=== PATIENT | female | born 1970 | race Hispanic/Latino ===

== ENCOUNTER 2020-02-21 10:21 | Emergency (ER) | payer BC ==
[2020-02-21] MEDS ORDERED: KETOROLAC TROMETHAMINE 30 MG/ML VIAL IV NR (11:01)
[2020-02-21] MEDS ORDERED: SODIUM CHLORIDE 0.9% 1000ML 1,000 ML IV STA (11:01)
[2020-02-21] MEDS ORDERED: PANTOPRAZOLE 40 MG 10ML VIAL IV NR (11:01)
[2020-02-21] MEDS ORDERED: ONDANSETRON HCL INJ 2MG/ML 2ML 2 MG/ML VIAL IV NR (11:01)
[2020-02-21] MEDS ORDERED: DIATRIZOATE MEGL/DIATRIZOA SOD 30 ML BTL PO ONE (11:16)
[2020-02-21 11:52] LABS: BASOPHILS % 0.3 % (0.0-1.0); EOSINOPHILS # (AUTO) 0.2 (0.0-0.4); EOSINOPHILS % 1.3 % (0.0-6.0); HEMATOCRIT 41.1 % (34.2-44.1); HEMOGLOBIN 12.7 g/dL (12.0-16.0); LYMPHOCYTES # (AUTO) 3.3 (1.0-3.2); LYMPHOCYTES % 27.9 % (18.0-39.1); MEAN CORPUSCULAR HEMOGLOBIN 26.1 pg (28-32); MEAN CORPUSCULAR HGB CONC 30.9 g/dL (31-35); MEAN CORPUSCULAR VOLUME 84.6 fL (81-99); MONOCYTES # (AUTO) 0.5 (0.2-0.8); MONOCYTES % 4.3 % (4.4-11.3); NEUTROPHILS # (AUTO) 7.7 (2.1-6.9); NEUTROPHILS % 65.9 % (38.7-80.0); PLATELET COUNT 313 x10e3/uL (140-360); RED BLOOD COUNT 4.86 x10e6/uL (3.6-5.1); RED CELL DISTRIBUTION WIDTH 14.5 % (11.7-14.4)
[2020-02-21 12:08] LABS: PARTIAL THROMBOPLASTIN TIME 31.6 seconds (23.8-35.5)
[2020-02-21 12:10] LABS: CLARITY,URINE SL CLOUDY (CLEAR); COLOR,URINE YELLOW (YELLOW)
[2020-02-21 12:11] LABS: BILIRUBIN,URINE NEGATIVE (NEGATIVE); KETONES,URINE NEGATIVE (NEGATIVE); LEUKOCYTE ESTERASE ,URINE TRACE (NEGATIVE); NITRITE,URINE NEGATIVE (NEGATIVE); PROTEIN,URINE DIPSTICK NEGATIVE (NEGATIVE); URINE UROBILINOGEN 0.2 mg/dL (0.2 - 1)
[2020-02-21 12:12] LABS: BACTERIA,URINE RARE /HPF; EPITHELIAL CELLS,URINE FEW /LPF; PREGNANCY TEST, URINE NEGATIVE (NEGATIVE)
[2020-02-21 12:14] LABS: ALANINE AMINOTRANSFERASE 22 IU/L (0-55); ALBUMIN 3.2 g/dL (3.5-5.0); ALBUMIN/GLOBULIN RATIO 0.9 (0.8-2.0); ALKALINE PHOSPHATASE 133 IU/L (40-150); ANION GAP 10.2 mmol/L (8-16); BLOOD UREA NITROGEN 10 mg/dL (7-26); BUN/CREATININE RATIO 15 (6-25); CALCIUM 8.5 mg/dL (8.4-10.2); CARBON DIOXIDE 25 mmol/L (22-29); CHLORIDE 106 mmol/L (98-107); CREATININE, SERUM 0.65 mg/dL (0.57-1.11); EST GLOMERULAR FILTRATION RATE > 60 ML/MIN (60-); GLUCOSE 103 mg/dL (74-118); POTASSIUM 4.2 mmol/L (3.5-5.1); SODIUM 137 mmol/L (136-145)
[2020-02-21 12:35] LABS: INR 0.87; PROTHROMBIN TIME 12.3 seconds (11.9-14.5)
[2020-02-21] MEDS ORDERED: SODIUM CHLORIDE 0.9% 50ML 50 ML ONE (12:40)
[2020-02-21] MEDS ORDERED: IOPAMIDOL 370 MG/ML 200 ML INFUS..BTL INJ ONE (12:40)
--- NOTE | 2020-02-21 13:21 | Diagnostic Imaging Report ---
EXAMINATION: CT of the abdomen and pelvis with contrast. TECHNIQUE: Helical CT images of the abdomen and pelvis were performed from the lung bases to the lesser trochanters after the intravenous administration of 100 cc of Isovue 300 and the oral administration of enteric contrast. Coronal and sagittal reformatted images were obtained. Dose modulation, iterative reconstruction, and/or weight based adjustment of the mA/kV was utilized to reduce the radiation dose to as low as reasonably achievable. COMPARISON: None. CLINICAL HISTORY:Abdominal pain DISCUSSION: ABDOMEN/PELVIS: LOWER THORAX:Unremarkable. HEPATOBILIARY: No focal hepatic lesions. No intra-or extrahepatic biliary ductal dilation. The gallbladder is normal. SPLEEN: No splenomegaly. PANCREAS: No focal masses or ductal dilatation. ADRENALS: No adrenal nodules. 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 Otherwise kidneys are unremarkable. PELVIC ORGANS/BLADDER: The bladder is normal. PERITONEUM/RETROPERITONEUM: No free air or fluid. LYMPH NODES: No intra-abdominal, retroperitoneal, pelvic or inguinal lymphadenopathy. VESSELS: Unremarkable. GI TRACT: Colonic diverticulosis with diverticulitis of the proximal sigmoid colon no abscess. BONES AND SOFT TISSUE: No bony destructive lesions. No soft tissue abnormalities. IMPRESSION: Acute uncomplicated diverticulitis. A 2.3 cm left renal angiomyolipoma. Signed by: Dr. Rojas Canales M.D. on 02/21/2020 1:18 PM
[2020-02-21] MEDS ORDERED: PIPERACILLIN/TAZO 4.5 GM 100 ML IV ONE (13:30)
--- NOTE | 2020-02-21 13:50 | Emergency Department Note ---
History of Present Illnes History of Present Illness Chief Complaint: Abdominal Complaints History of Present Illness This is a 49 year old female C/O CONSTANT NON RADIATING LLQ PAIN X 6 DAYS DENIES N/V/D DENIES DYSURIA/HEMATURIA. 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 Any updates have been documented here. Past Medical History Recent Fever: No Clinical Suspicion of Infectio: No New/Unexplained Change in Ment: No Social History Smoking Cessation: Never Smoker Counseling Performed: No Alcohol Use: None Any Illegal Drug Use: No Other Any Pre-Existing Lines (PICC,: No Review of Systems Review of Systems Constitutional: Reports no symptoms EENTM: Reports no symptoms Cardiovascular: Reports no symptoms Respiratory: Reports no symptoms Gastrointestinal: Reports as per HPI Genitourinary: Reports no symptoms Musculoskeletal: Reports no symptoms Integumentary: Reports no symptoms Neurological: Reports no symptoms Psychological: Reports no symptoms Endocrine: Reports no symptoms Hematological/Lymphatic: Reports no symptoms Physical Exam Related Data Allergies: Coded Allergies: No Known Allergies (Unverified , 02/21/20) Triage Vital Signs Vital Signs Date Time Temp Pulse Resp B/P (MAP) Pulse Ox O2 Delivery O2 Flow Rate FiO2 02/21/20 10:58 98.8 95 18 155/102 98 Room Air Vital signs reviewed: Yes Physical Exam CONSTITUTIONAL Constitutional: Present well-developed, Present well-nourished HENT HENT: Present normocephalic, Present atraumatic, Present oropharynx alberto r/moist, Present nose normal HENT L/R: Present left ext ear normal, Present right ext ear normal EYES Eyes: Reports PERRL, Reports conjunctivae normal NECK Neck: Present ROM normal PULMONARY Pulmonary: Present effort normal, Present breath sounds normal CARDIOVASCULAR Cardiovascular: Present regular rhythm, Present heart sounds normal, Present capillary refill normal, Present normal rate GASTROINTESTINAL Abdominal: Present soft, Present tender (MOD TENDERNESS LLQ WITHOUT R/G) GENITOURINARY Genitourinary: Present exam deferred SKIN Skin: Present warm, Present dry MUSCULOSKELETAL Musculoskeletal: Present ROM normal NEUROLOGICAL Neurological: Present alert, Present oriented x 3, Present no gross motor or sensory deficits PSYCHOLOGICAL Psychological: Present mood/affect normal, Present judgement normal Results Laboratory Result Diagram: 02/21/20 1107 02/21/20 1107 Laboratory Laboratory Tests Test 02/21/20 11:07 White Blood Count 11.72 x10e3/uL (4.8-10.8) Red Blood Count 4.86 x10e6/uL (3.6-5.1) Hemoglobin 12.7 g/dL (12.0-16.0) Hematocrit 41.1 % (34.2-44.1) Mean Corpuscular Volume 84.6 fL (81-99) Mean Corpuscular Hemoglobin 26.1 pg (28-32) Mean Corpuscular Hemoglobin Concent 30.9 g/dL (31-35) Red Cell Distribution Width 14.5 % (11.7-14.4) Platelet Count 313 x10e3/uL (140-360) Neutrophils (%) (Auto) 65.9 % (38.7-80.0) Lymphocytes (%) (Auto) 27.9 % (18.0-39.1) Monocytes (%) (Auto) 4.3 % (4.4-11.3) Eosinophils (%) (Auto) 1.3 % (0.0-6.0) Basophils (%) (Auto) 0.3 % (0.0-1.0) Neutrophils # (Auto) 7.7 (2.1-6.9) Lymphocytes # (Auto) 3.3 (1.0-3.2) Monocytes # (Auto) 0.5 (0.2-0.8) Eosinophils # (Auto) 0.2 (0.0-0.4) Basophils # (Auto) 0.0 (0.0-0.1) Absolute Immature Granulocyte (auto 0.04 x10e3/uL (0-0.1) Prothrombin Time 12.3 seconds (11.9-14.5) Prothromb Time International Ratio 0.87 Activated Partial Thromboplast Time 31.6 seconds (23.8-35.5) Urine Color Yellow (YELLOW) Urine Clarity Sl cloudy (CLEAR) Urine pH 6 (5 - 7) Urine Specific [place] >=1.030 (1.010-1.025) Urine Protein Negative (NEGATIVE) Urine Glucose (UA) Negative (NEGATIVE) Urine Ketones Negative (NEGATIVE) Urine Blood Small (NEGATIVE) Urine Nitrite Negative (NEGATIVE) Urine Bilirubin Negative (NEGATIVE) Urine Urobilinogen 0.2 mg/dL (0.2 - 1) Urine Leukocyte Esterase Trace (NEGATIVE) Urine RBC 6-10 /HPF (0-5) Urine WBC 6-10 /HPF (0-5) Urine Epithelial Cells Few /LPF (NONE) Urine Bacteria Rare /HPF (NONE) Urine Test Negative (NEGATIVE) Sodium Level 137 mmol/L (136-145) Potassium Level 4.2 mmol/L (3.5-5.1) Chloride Level 106 mmol/L (98-107) Carbon Dioxide Level 25 mmol/L (22-29) Anion Gap 10.2 mmol/L (8-16) Blood Urea Nitrogen 10 mg/dL (7-26) Creatinine 0.65 mg/dL (0.57-1.11) Estimat Glomerular Filtration Rate > 60 ML/MIN (60-) BUN/Creatinine Ratio 15 (6-25) Glucose Level 103 mg/dL (74-118) Calcium Level 8.5 mg/dL (8.4-10.2) Total Bilirubin 0.4 mg/dL (0.2-1.2) Aspartate Amino Transf (AST/SGOT) 15 IU/L (5-34) Alanine Aminotransferase (ALT/SGPT) 22 IU/L (0-55) Alkaline Phosphatase 133 IU/L (40-150) Total Protein 6.9 g/dL (6.5-8.1) Albumin 3.2 g/dL (3.5-5.0) Globulin 3.7 g/dL (2.3-3.5) Albumin/Globulin Ratio 0.9 (0.8-2.0) Human Chorionic Gonadotropin, Qual Negative (NEGATIVE) Lab results reviewed: Yes Imaging Imaging results reviewed: Yes Impressions Procedure: [id number] CT/CT ABDOMEN/PELVIS W Exam Date: 02/21/20 Exam Time: 1245 REPORT STATUS: Signed EXAMINATION: CT of the abdomen and pelvis with contrast. TECHNIQUE: Helical CT images of the abdomen and pelvis were performed from the lung bases to the lesser trochanters after the intravenous administration of 100 cc of Isovue 300 and the oral administration of enteric contrast. Coronal and sagittal reformatted images were obtained. Dose modulation, iterative reconstruction, and/or weight based adjustment of the mA/kV was utilized to reduce the radiation dose to as low as reasonably achievable. COMPARISON: None. CLINICAL HISTORY:Abdominal pain DISCUSSION: ABDOMEN/PELVIS: LOWER THORAX:Unremarkable. HEPATOBILIARY: No focal hepatic lesions. No intra-or extrahepatic biliary ductal dilation. The gallbladder is normal. SPLEEN: No splenomegaly. PANCREAS: No focal masses or ductal dilatation. ADRENALS: No adrenal nodules. 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 Otherwise kidneys are unremarkable. PELVIC ORGANS/BLADDER: The bladder is normal. PERITONEUM/RETROPERITONEUM: No free air or fluid. LYMPH NODES: No intra-abdominal, retroperitoneal, pelvic or inguinal lymphadenopathy. VESSELS: Unremarkable. GI TRACT: Colonic diverticulosis with diverticulitis of the proximal sigmoid colon no abscess. BONES AND SOFT TISSUE: No bony destructive lesions. No soft tissue abnormalities. IMPRESSION: Acute uncomplicated diverticulitis. A 2.3 cm left renal angiomyolipoma. Signed by: Dr. Rojas Canales M.D. on 02/21/2020 1:18 PM Assessment & Plan Medical Decision Making MDM LLQ ABD PAIN - CHECK CBC, CHEM'S, PREG TEST, UA/CX, CT ABD/PELVIS - R/O DIVERTICULITIS, UTI, OVARIAN CYST, LEUKOCYTOSIS, RENAL INSUFF Reassessment Reassessment PT WANTS TO GO HOME. WILL DC WITH CIPRO/FLAGYL X 10 DAYS, BENTYL, ZOFRAN, F/U PCP & GI WELLS, RTED PRN SX'S WORSEN Assessment & Plan Final Impression: (1) Diverticulitis Depart Disposition: HOME, SELF-CARE Last Vital Signs Date Time Temp Pulse Resp B/P (MAP) Pulse Ox O2 Delivery O2 Flow Rate FiO2 02/21/20 12:00 85 18 140/92 100 02/21/20 10:58 98.8 Room Air Medications in the ED Pantoprazole Sodium 40 mg ONCE IV Last administered on 02/21/20at 12:00; Admin Dose 40 MG; Start 02/21/20 at 11:01; Stop 02/21/20 at 12:00; Status DC Ondansetron HCl 4 mg ONCE IV Last administered on 02/21/20at 12:31; Admin Dose 4 MG; Start 02/21/20 at 11:01; Stop 02/21/20 at 12:00; Status DC Ketorolac Tromethamine 30 mg ONCE IV Last administered on 02/21/20at 12:00; Admin Dose 30 MG; Start 02/21/20 at 11:01; Stop 02/21/20 at 12:00; Status DC Sodium Chloride 1,000 ml @ 0 mls/hr Q0M STAT IV Last administered on 02/21/20at 12:00; Admin Dose 999 MLS/HR; Start 02/21/20 at 11:01; Stop 02/21/20 at 11:04; Status DC Diatrizoate Meglum/ Diatrizoate Sod 30 ml STK-MED ONCE PO ; Start 02/21/20 at 1 1:16; Stop 02/21/20 at 11:10; Status DC Sodium Chloride 50 ml @ ud STK-MED ONCE .ROUTE ; Start 02/21/20 at 12:40; Stop 02/21/20 at 12:34; Status DC Iopamidol 74,000 mg STK-MED ONCE INJ ; Start 02/21/20 at 12:40; Stop 02/21/20 at 12:35; Status DC Piperacillin Sod/ Tazobactam Sod 100 ml @ 100 mls/hr NOW ONCE IV ; Start 02/21/20 at 13:30; Stop 02/21/20 at 14:29; Status SPEEDY VILLATORO MD Feb 21, 2020 13:50
[2020-02-21 14:31] VITALS: BP 102/85
== END 2020-02-21 14:58 | disposition home or self-care (01) ==
LOC: ER 11:00
DX: R10.32 Left lower quadrant pain (principal); K57.32 Diverticulitis of large intestine without perforation or abscess without bleeding
CPT/HCPCS: 36415; 74177; 80053; 81001; 81025; 84702; 85025; 85610; 85730; 87086; 99284; C9113; J1885; J2405; J2543; J7030; Q9967